=== PATIENT | female | born 1985 | race Two or more races ===

== ENCOUNTER 2021-08-07 15:54 | Emergency (ER) | payer OTHER ==
[~2021-08-07] VITALS: Ht 152.4 cm; Wt 63.5 kg
[2021-08-07 16:50] VITALS: BP 135/87
[2021-08-07] MEDS ORDERED: KETOROLAC TROMETH 60MG/2ML VIAL IM ONE (17:45)
[2021-08-07] MEDS ORDERED: IBUP800T27 PO (18:26)
[2021-08-07] MEDS ORDERED: METH500T22 PO (18:26)
== END 2021-08-07 18:37 | disposition home or self-care (01) ==
LOC: ER 15:54
DX: S16.1XXA Strain of muscle, fascia and tendon at neck level, initial encounter (principal); S46.911A Strain of unspecified muscle, fascia and tendon at shoulder and upper arm level, right arm, initial encounter; S20.211A Contusion of right front wall of thorax, initial encounter; F17.210 Nicotine dependence, cigarettes, uncomplicated; V43.52XA Car driver injured in collision with other type car in traffic accident, initial encounter; Y93.89 Activity, other specified; Y92.488 Other paved roadways as the place of occurrence of the external cause; Y99.8 Other external cause status
CPT/HCPCS: 29105; 71045; 72125; 73030; 96372; 99284; J1885